=== PATIENT | male | born 1945 | race Asian ===

== ENCOUNTER 2017-04-12 10:02 | Emergency (ER) | payer SELFPAY ==
[2017-04-12] MEDS ORDERED: SOD CHLORIDE 0.9% 1,000 ML IV (11:19)
== END 2017-04-12 12:29 | disposition home or self-care (01) ==
LOC: E/R 10:02
DX: S91.205A Unspecified open wound of left lesser toe(s) with damage to nail, initial encounter (principal); E11.65 Type 2 diabetes mellitus with hyperglycemia; W22.8XXA Striking against or struck by other objects, initial encounter; Y92.89 Other specified places as the place of occurrence of the external cause
CPT/HCPCS: 73630; 73630-LT; 82962; 99284-25